=== PATIENT | female | born 1990 | race Hispanic/Latino ===

== ENCOUNTER → 2023-12-23 11:35 | Outpatient (REF) | payer OTHER, SELFPAY ==
[2023-12-23 12:29] LABS: % Basophils 0.5 % (0-2); % Eosinophils 0.6 % (0-6); % Immature Granulocytes 0.4 % (0-0.5); % Lymphocytes 31.7 % (20.5-51.1); % Monocytes 5.6 % (1.7-9.3); % Neutrophils 61.2 % (42.2-75.2); Absolute Eosinophils 0.1 10^3/uL (0-0.7); Absolute Lymphocytes 2.5 10^3/uL (1.2-3.4); Absolute Monocytes 0.4 10^3/uL (0.1-0.6); Absolute Neutrophils 4.8 10^3/uL (1.4-6.5); Hematocrit 41.8 % (37.0-47.0); Hemoglobin 14.6 g/dL (12.0-16.0); Mean Corp Hgb Conc. 34.9 g/dL (33.0-37.0); Mean Corpuscular Hgb 33.5 pg (27.0-31.0); Mean Corpuscular Volume 95.9 fL (81.0-99.0); Mean Platelet Volume 11.7 fL (7.4-10.4); Nucleated Red Blood Cells % 0 %; Platelet Count 173 10^3/uL (130-400); Red Blood Cell Count 4.36 10^6/uL (4.20-5.40); Red Cell Dist. Width 11.9 % (11.5-14.5); White Blood Cell Count 7.8 10^3/uL (4.8-10.8)
[2023-12-23 13:02] LABS: ALT (SGPT) 31 U/L (0-35); AST (SGOT) 29 U/L (14-36); Albumin 4.3 g/dl (3.5-5.0); Alkaline Phosphatase 81 U/L (38-126); Blood Urea Nitrogen 11 mg/dl (7-17); Calcium 9.7 mg/dl (8.4-10.2); Carbon Dioxide 23 mmol/L (22-30); Chloride 107 mmol/L (98-107); Glucose 97 mg/dl (70-99); HDL Cholesterol 56 mg/dl; LDL Cholesterol, Calculated 61 mg/dl; Potassium 4.3 mmol/L (3.5-5.1); Sodium 139 mmol/L (135-145); Total Bilirubin 0.5 mg/dl (0.2-1.3); Total Cholesterol 143 mg/dl (50-199); Total Protein 7.1 g/dl (6.3-8.2); Triglyceride 130 mg/dl (10-149); Very Low Density Lipoprotein 26 mg/dl (0-30); eGFR > 60.00
[2023-12-23 13:32] LABS: TSH Reflex To Free T4 0.79 uIU/ml (0.47-4.68)
[2023-12-23 13:35] LABS: Ferritin 45.9 ng/ml (6.24-137)
[2023-12-23 13:37] LABS: Urine Albumin Negative (Neg - Trace); Urine Bilirubin Negative (Negative); Urine Character Clear (Clear); Urine Color Yellow; Urine Glucose Negative (Negative); Urine Ketone Trace (Negative); Urine Leukocyte 2+ (Negative); Urine Nitrite Positive (Negative); Urine Occult Blood Negative (Negative); Urine Specific Gravity 1.015 (<1.030); Urine Urobilinogen Negative (Neg - 1+)
[2023-12-23 13:53] LABS: Urine Squamous Cell >30 /LPF (Few)
[2023-12-23 13:54] LABS: Urine Bacteria Many (Negative); Urine Red Blood Cell None Seen /HPF (0-2)
[2023-12-23 13:55] LABS: Urine White Cell 21-25 /HPF (0-5)
[2023-12-24 09:23] LABS: Glycohemoglobin (HgbA1c) 5.1 % (4.0-5.6)
== END ==
LOC: CLINIC 11:35
PROVIDERS: ATTENDING PHYSICIAN Student in an Organized Health Care Education/Training Program
DX: Z00.00 Encounter for general adult medical examination without abnormal findings (principal)
CPT/HCPCS: 36415; 80053; 80061; 81003; 81015; 82728; 83036; 84443; 85025; 87077; 87086; 87186

== ENCOUNTER → 2024-02-10 11:46 | Outpatient (REF) | payer OTHER, SELFPAY ==
[2024-02-19 21:24] LABS: HPV, High Risk Not Detected; HPV, High Risk Source Cervical
== END ==
LOC: CLINIC 11:46
PROVIDERS: ATTENDING PHYSICIAN Nurse Practitioner Adult Health
DX: Z12.4 Encounter for screening for malignant neoplasm of cervix (principal)
CPT/HCPCS: 87624; G0123

== ENCOUNTER 2024-04-03 20:37 | Emergency (ER) | payer OTHER, SELFPAY ==
[2024-04-03 20:47] VITALS: BP 138/88
[2024-04-03 22:00] VITALS: BP 129/81
--- NOTE | 2024-04-03 22:15 | ED.GENMED ---
History of Present Illness
<DOMO French - Last Filed: 04/04/24 02:42>
General
Chief Complaint: Problems
Time Seen by Provider: 04/03/24 21:55
History of Present Illness
History of Present Illness:
Pt is a 33 y/o female presenting after two positive at home tests. She states her last menstrual period was on March 01 and her current period is 3 days late. She states she took an at home test last night and today and
they were both positive. She states she is having LLQ abdominal pain that started yesterday. She states the pain started at noon yesterday and was intermittent and crampy until the evening when it resolved. She states currently she only has the pain
with palpation of the LLQ. Pt states she has a history of a tubal ligation and is worried she will not be able to carry the . She denies any headaches, fevers, chest pain, nausea, vomiting, hange in bowel habits, or urinary symptoms.
Past History
<Rita Ocampo DO - Last Filed: 04/04/24 06:44>
Past History
ED Past Medical History: Other (Ectopic )
ED Past Surgical History: Appendectomy (2020), (2008) and Gynecological (Right oophorectomy, ectopic removal 2020)
Social History
Tobacco: Non-smoker
Alcohol: None
Personal:
Living: with family
Employment: Not employed
Family History
Family History: Other (Noncontributory)
Phy Exam
<DOMO French - Last Filed: 04/04/24 02:42>
Physical Exam
Physical Exam:
GENERAL: Alert , in no apparent distress
EYE: pupils equal and reactive
Throat: Airway intact, no exudates
NECK: Supple, no significant adenopathy.
CARDIAC: Regular rate and rhythm .
LUNGS: Clear breath sounds bilaterally, no acute respiratory distress, no wheezes/rales/rhonchi
ABDOMEN: Tender to palpation in the LLQ. Soft, nondistended, no cvat
NEUROLOGICAL: Alert and oriented, no focal neuro deficits
MUSCULOSKELETAL: No edema, well perfused.
PSYCH: Normal and appropriate interaction.
Course
<DOMO French - Last Filed: 04/04/24 02:42>
Orders/Labs/Results
Orders:
Orders
04/03/24 22:00
Test Result ONCE
04/03/24 22:21
Add On- LAB Urgent
Tests Added?: quant HCG if qual HCG(+)
04/03/24 22:32
US W Transvaginal Urgent
Reason For Exam: LLQ pain, spotting, early preg LMP 03/01/24
04/03/24 22:52
Blood Group&Type Urgent
Beta HCG Quantitative Urgent
Comment: PROB
Vital Signs
Initial and Last Documented VS:
Initial Vital Signs
Temp Pulse Resp BP Pulse Ox
99.2 F 100 24 138/88 98
04/03/24 20:47 04/03/24 20:47 04/03/24 20:47 04/03/24 20:47 04/03/24 20:47
Last Documented Vital Signs
Temp Pulse Resp BP Pulse Ox
97.6 F 67 16 120/71 100
04/04/24 02:33 04/04/24 02:33 04/04/24 02:33 04/04/24 02:33 04/04/24 02:33
Information
Weeks gestation: Weeks: (4)
Location: Location: (Unable to determine)
<Rita Ocampo DO - Last Filed: 04/04/24 06:44>
Orders/Labs/Results
Orders:
Orders
04/03/24 22:00
Test Result ONCE
04/03/24 22:21
Add On- LAB Urgent
Tests Added?: quant HCG if qual HCG(+)
04/03/24 22:32
US W Transvaginal Urgent
Reason For Exam: LLQ pain, spotting, early preg LMP 03/01/24
04/03/24 22:52
Blood Group&Type Urgent
Beta HCG Quantitative Urgent
Comment: PROB
Vital Signs
Initial and Last Documented VS:
Initial Vital Signs
Temp Pulse Resp BP Pulse Ox
99.2 F 100 24 138/88 98
04/03/24 20:47 04/03/24 20:47 04/03/24 20:47 04/03/24 20:47 04/03/24 20:47
Last Documented Vital Signs
Temp Pulse Resp BP Pulse Ox
97.6 F 67 16 120/71 100
04/04/24 02:33 04/04/24 02:33 04/04/24 02:33 04/04/24 02:33 04/04/24 02:33
Information
Weeks gestation: Weeks: (4)
Location: Location: (unable to determine. HCG only 153. No IUP nor adenexal mass found on US)
<DOMO French - Last Filed: 04/04/24 02:42>
*Radiology
Radiology exam reviewed: radiology read reviewed
*Pulse Oximetry
Patient hypoxic: no
*EKG
Interpreted by ED Provider?: NA
*Clinical Team Lead Interpretation
Rate: Clinical Team Lead- N/A
*Critical Care Note
Total Time (30-74mins, 75-104mins- exclusive of procedures): Not Applicable
ED Attending Note
<DOMO French - Last Filed: 04/04/24 02:42>
-
Portions of this chart may have been created with voice recognition software.� Occasional wrong word or��sound alike� substitutions may have occurred due to the inherent limitations of voice recognition software.
<Rita Ocampo, DO - Last Filed: 04/04/24 06:44>
ED Attending Note
Patient seen and examined by attending physician: Yes
I performed the substantive portion of visit, reviewed & personally made and approve the management plan that is documented in note by myself or LACIE.: Yes
ED Attending Note:
This is a 33-year-old, Ukrainian-speaking woman who presents with 2 to 3-day history of vaginal spotting with history of 2 positive home tests performed today as well as yesterday.
Last normal menstrual period March 01, 2024. She is currently 3 days late for her menses. Menstrual periods are generally very regular, monthly.
She complains of mild left lower quadrant discomfort that began yesterday, intermittent and mild throughout the day today. No dysuria and urgency and or hematuria, no back pain or flank pain.
She is 4 Para 2-0-1-2. She has 2 children at home, 1 born via 2008, prior to that a vaginal delivery.
2-1/2 years ago she suffered a right ectopic complicated by right ovary hemorrhagic cyst and underwent surgical removal of right ectopic as well as right ovary and appendectomy.
At the time of that surgery she was told that going forward she may have difficulty/complications if she were to become again.
She does admit that this is a surprise, she and her have not been using control for several years.
She takes no medicines on a daily basis.
No significant past medical history.
Records reviewed. Patient follows with [facility].
Unremarkable routine screening laboratory studies November of this year.
Normal Pap smear January of this year. Negative for HPV.
GENERAL: 33-year-old woman appears her stated age, awake and alert, pleasant, appears in no acute distress. Her is accompanying. Language line convertible sofa bedspring tester utilized.
EYE: anicteric
NECK: Supple, nontender, no meningismus, no significant adenopathy.
ENT: oral mucosa is moist. No rhinorrhea.
CARDIAC: Regular rate and rhythm. no murmur.
LUNGS: Clear breath sounds bilaterally, no acute respiratory distress, no wheezes/rales/rhonchi
ABDOMEN: Soft, nondistended, minimal tenderness with deep palpation only left lower quadrant as well as minimal tenderness with deep palpation only suprapubic region, no r/g, no cvat. normoactive BS.
NEUROLOGICAL: Alert and oriented x3, no focal neuro deficits. Gait is chambers and steady.
SKIN: Warm and dry, normal color, skin intact. No rash.
MUSCULOSKELETAL: No C/C/E. peripheral pulses are full and equal b/l. No palpable tenderness.
PSYCH: Normal and appropriate interaction.
Concern for ectopic , early/incomplete miscarriage.
Hemodynamically stable and overall appears comfortable.
Will verify with serum hCG�quantitative hCG.
Will check type and Rh.
Will plan for ultrasound.
04/04/2024 0244 AM
Quantitative hCG is quite low at 153. Type and Rh O+.
Patient remains comfortable. Denies pain.
Ultrasound shows no IUP, no adnexal masses. No pelvic free fluid.
Discussed with patient that significantly low hCG could just be very very early versus loss. It also does not rule out ectopic however no evidence of ectopic currently on ultrasound.
She and her were not planning on becoming and she is contemplating termination if is deemed viable.
She follows with our [facility] and recommend she call the clinic today for follow-up appointment tomorrow, April 05 for repeat hCG. If hCG is trending down, this signifies loss of .
If hCG is trending up she will require further serial hCGs and serial ultrasounds.
Return precautions discussed including severe pain, severe bleeding.
Discharge Plan
Departure
Patient Disposition: Home (Routine Discharge)
Date of Disposition: 04/04/24
Time of Disposition: 02:40
Patient with high blood pressure during this ER visit?: No
Discharge Problem:
Threatened in early
Referrals:
[facility] - Tomorrow
UNKNOWN - PT DOES,NOT KNOW [Family Provider] -
Activity Restrictions/Additional Instructions:
You will need repeat Quantitative HCG on 04/05/24.
Interventions
Interventions:
*Risk Screen - Suicide Last Done: 04/03/24 20:47
*General Assessment Last Done: 04/03/24 22:45
*Neglect/Abuse Screening Last Done: 04/03/24 20:47
ED- Fall Risk Assessment Last Done: 04/03/24 22:55
*ED COVID-19 Vaccine History Last Done: 04/03/24 22:45
*Nursing Disposition Last Done: 04/04/24 02:46
ED-Female Genitourinary Assessment Last Done: 04/03/24 22:55
Discharge Date and Time
Discharge Date/Time: 04/04/24 02:46
Print Language: ZIMBABWEAN
[2024-04-03 22:43] VITALS: BMI 23.6
[2024-04-03 23:49] LABS: Beta HCG Quantitative 153.29 mIU/ml
[2024-04-04 01:00] VITALS: BP 122/62
[2024-04-04 02:33] VITALS: BP 120/71
== END 2024-04-04 02:46 | disposition home or self-care (01) ==
LOC: EMR 20:37
PROVIDERS: EMERGENCY PHYSICIAN Emergency Medicine
DX: O20.0 Threatened abortion (principal); Z3A.01 Less than 8 weeks gestation of pregnancy
CPT/HCPCS: 99284; 76801; 76817; 84702; 86900; 86901

== ENCOUNTER 2024-04-18 18:10 | Emergency (ER) | payer OTHER, SELFPAY ==
[2024-04-18 18:55] VITALS: BP 130/74
[2024-04-18 19:14] LABS: % Basophils 0.5 % (0-2); % Eosinophils 1.4 % (0-6); % Immature Granulocytes 0.3 % (0-0.5); % Lymphocytes 32.5 % (20.5-51.1); % Monocytes 6.2 % (1.7-9.3); % Neutrophils 59.1 % (42.2-75.2); Absolute Eosinophils 0.1 10^3/uL (0-0.7); Absolute Lymphocytes 2.6 10^3/uL (1.2-3.4); Absolute Monocytes 0.5 10^3/uL (0.1-0.6); Absolute Neutrophils 4.7 10^3/uL (1.4-6.5); Hematocrit 38.5 % (37.0-47.0); Hemoglobin 13.8 g/dL (12.0-16.0); Mean Corp Hgb Conc. 35.8 g/dL (33.0-37.0); Mean Corpuscular Hgb 33.9 pg (27.0-31.0); Mean Corpuscular Volume 94.6 fL (81.0-99.0); Mean Platelet Volume 11.7 fL (7.4-10.4); Nucleated Red Blood Cells % 0 %; Platelet Count 182 10^3/uL (130-400); Red Blood Cell Count 4.07 10^6/uL (4.20-5.40); Red Cell Dist. Width 12.2 % (11.5-14.5); White Blood Cell Count 7.9 10^3/uL (4.8-10.8)
[2024-04-18 19:36] LABS: ALT (SGPT) 24 U/L (0-35); AST (SGOT) 24 U/L (14-36); Albumin 4.4 g/dl (3.5-5.0); Alkaline Phosphatase 78 U/L (38-126); Blood Urea Nitrogen 11 mg/dl (7-17); Calcium 9.7 mg/dl (8.4-10.2); Carbon Dioxide 22 mmol/L (22-30); Chloride 108 mmol/L (98-107); Glucose 99 mg/dl (70-99); Potassium 4.5 mmol/L (3.5-5.1); Sodium 138 mmol/L (135-145); Total Bilirubin 0.4 mg/dl (0.2-1.3); eGFR > 60.00
[2024-04-18 20:04] LABS: Beta HCG Quantitative 362.29 mIU/ml
--- NOTE | 2024-04-18 21:03 | ED.GENMED ---
History of Present Illness
General
Chief Complaint: Problems
Time Seen by Provider: 04/18/24 20:27
History of Present Illness
History of Present Illness:
34-year-old female, G4, P2, presents to the emergency department for evaluation of increased abdominal pain and vaginal bleeding. She presented to this emergency department just over 2 weeks ago with a similar complaint at which time ultrasound was
not feeling and hCG levels were low at approximately 150. She did not follow-up with [facility] in the interim. Symptoms worsen time bleeding increased today. Denies any fevers or chills. Prior abdominal surgery includes right oophorectomy, tubal
ligation, x 1, and appendectomy.
Past History
Past History
ED Past Medical History: Other (Ectopic )
ED Past Surgical History: Appendectomy (2020), (2008) and Gynecological (Right oophorectomy, ectopic removal 2020)
Social History
Tobacco: Non-smoker
Alcohol: None
Personal:
Living: with family
Employment: Not employed
Family History
Family History: Other (Noncontributory)
Review of Systems
Review of Systems
Allergies reviewed?: Yes
All Other Systems: ROS reviewed and negative except as documented in HPI and ROS
Phy Exam
Physical Exam
Physical Exam:
GEN: Well appearing, NAD, WDWN
HEENT: Oral mucosa moist, no scleral icterus
Cardiac: Regular rate
Lung: No respiratory distress, no tachypnea
Abdomen: Soft, mild central lower abdominal tenderness
MSK: No gross deformity or injuries
Skin: Good color, no pallor or jaundice, no rashes
Neuro: AO x3, moves all extremities freely
Psych: Calm, cooperative
Course
Orders/Labs/Results
Orders:
Orders
04/18/24 19:07
Blood Group&Type Urgent
Beta HCG Quantitative Urgent
Is this a screen?: No
CMP [Comprehensive Metabolic Panel] Urgent
Complete Blood Count/With Diff Urgent
04/18/24 19:11
US W Transvaginal Urgent
Reason For Exam: bleeding
04/18/24 22:00
Methotrexate Sodium/Pf [Methotrexate] 38.5 mg Syringe [Syringe Non-Pump] 0 ml IM ONCE
Methotrexate Sodium/Pf [Methotrexate] 38.5 mg Syringe [Syringe Non-Pump] 0 ml IM ONCE
Abnormal Lab Results
04/18/24
19:07
RBC 4.07 L 10^6/uL
(4.20-5.40)
MCH 33.9 H pg
(27.0-31.0)
MPV 11.7 H fL
(7.4-10.4)
Chloride 108 H mmol/L
(98-107)
04/18/24 19:07
04/18/24 19:07
Vital Signs
Initial and Last Documented VS:
Initial Vital Signs
Temp Pulse Resp BP Pulse Ox
98.6 F 82 22 130/74 100
04/18/24 18:55 04/18/24 18:55 04/18/24 18:55 04/18/24 18:55 04/18/24 18:55
Last Documented Vital Signs
Temp Pulse Resp BP Pulse Ox
98.6 F 82 22 130/74 100
04/18/24 18:55 04/18/24 18:55 04/18/24 18:55 04/18/24 18:55 04/18/24 18:55
Information
Weeks gestation: N/A
Location: Location: (Ectopic)
MDM/Problems Addressed
MDM/Problems Addressed:
Ultrasound reveals a suspected ectopic with a new mass at the right adnexa. Patient's hCG did climb given lack of any other findings to suggest an intrauterine I suspect this is truly an ectopic, particularly given high risk
situation with her prior tubal ligation. Case was discussed with [facility] who agree with proceeding with methotrexate. Initial IM dose given in the emergency department, patient instructed thoroughly regarding avoidance of NSAIDs and sun exposure,
alcohol intake, and need for hCG repeat in 4 days. Outpatient orders are written and she is advised to call [facility] for follow-up
*Critical Care Note
Total Time (30-74mins, 75-104mins- exclusive of procedures): Not Applicable
ED Attending Note
-
Portions of this chart may have been created with voice recognition software.� Occasional wrong word or��sound alike� substitutions may have occurred due to the inherent limitations of voice recognition software.
Discharge Plan
Departure
Patient Disposition: Home (Routine Discharge)
Date of Disposition: 04/18/24
Time of Disposition: 21:45
Patient with high blood pressure during this ER visit?: No
Discharge Problem:
Ectopic
Instructions: Methotrexate, Ectopic - Discharge instructions
Prescriptions:
No Action
No Current Medications
0
Referrals:
UNKNOWN - PT DOES,NOT KNOW [Family Provider] -
Patito Guallpa MD [Active] - Call in 1-3 days for appt
Activity Restrictions/Additional Instructions:
You will need your HCG hormone levels redrawn on Thursday. Based on this result, you may need to come back for a repeat injection
Call the OBGYN office tomorrow morning for follow up appointment
Necesitar� volver a calcular mando niveles de la hormona HCG el viernes. Seg�n beverly resultado, es posible que deba regresar para repetir la inyecci�n. Llame a la oficina de OBGYN ma�avery por la ma�avery para vadim aura de seguimiento.
Interventions
Interventions:
*Risk Screen - Suicide Last Done: 04/18/24 18:55
*General Assessment Last Done: 04/18/24 20:59
*Neglect/Abuse Screening Last Done: 04/18/24 18:55
ED-Female Genitourinary Assessment Last Done: 04/18/24 21:02
Discharge Date and Time
Print Language: ROMANIAN
[2024-04-18 21:30] VITALS: BMI 28.4
[2024-04-18] MEDS: METHOTREXATE 1.54 MG IM (22:43)
[2024-04-18 22:54] VITALS: BP 119/78
== END 2024-04-18 22:54 | disposition home or self-care (01) ==
LOC: EMR 18:10
PROVIDERS: Student in an Organized Health Care Education/Training Program; EMERGENCY PHYSICIAN Emergency Medicine
DX: O00.90 Unspecified ectopic pregnancy without intrauterine pregnancy (principal); Z3A.00 Weeks of gestation of pregnancy not specified; Z90.49 Acquired absence of other specified parts of digestive tract; Z90.721 Acquired absence of ovaries, unilateral
CPT/HCPCS: 99284; 96372; 76801; 76817; 80053; 84702; 85025; 86900; 86901; J9260

== ENCOUNTER → 2024-04-22 08:54 | Outpatient (REF) | payer OTHER, SELFPAY ==
[2024-04-22 11:11] LABS: Beta HCG Quantitative 87.68 mIU/ml
== END ==
LOC: REG 08:54
PROVIDERS: ATTENDING PHYSICIAN Emergency Medicine; FAMILY PHYSICIAN Nurse Practitioner Adult Health
DX: O00.90 Unspecified ectopic pregnancy without intrauterine pregnancy (principal)
CPT/HCPCS: 36415; 84702

== ENCOUNTER → 2024-04-27 07:13 | Outpatient (REF) | payer OTHER, SELFPAY ==
[2024-04-27 08:24] LABS: % Basophils 0.5 % (0-2); % Eosinophils 1.2 % (0-6); % Immature Granulocytes 0.5 % (0-0.5); % Lymphocytes 39.6 % (20.5-51.1); % Neutrophils 52.2 % (42.2-75.2); Absolute Eosinophils 0.1 10^3/uL (0-0.7); Absolute Lymphocytes 2.6 10^3/uL (1.2-3.4); Absolute Monocytes 0.4 10^3/uL (0.1-0.6); Absolute Neutrophils 3.4 10^3/uL (1.4-6.5); Hematocrit 39.9 % (37.0-47.0); Hemoglobin 14.2 g/dL (12.0-16.0); Mean Corp Hgb Conc. 35.6 g/dL (33.0-37.0); Mean Corpuscular Hgb 33.9 pg (27.0-31.0); Mean Corpuscular Volume 95.2 fL (81.0-99.0); Mean Platelet Volume 11.3 fL (7.4-10.4); Nucleated Red Blood Cells % 0 %; Platelet Count 199 10^3/uL (130-400); Red Blood Cell Count 4.19 10^6/uL (4.20-5.40); Red Cell Dist. Width 12.6 % (11.5-14.5); White Blood Cell Count 6.5 10^3/uL (4.8-10.8)
[2024-04-27 08:39] LABS: Urine Albumin Negative (Neg - Trace); Urine Bilirubin Negative (Negative); Urine Character Clear (Clear); Urine Color Yellow; Urine Glucose Negative (Negative); Urine Ketone Negative (Negative); Urine Leukocyte Trace (Negative); Urine Nitrite Negative (Negative); Urine Occult Blood Negative (Negative); Urine Specific Gravity 1.025 (<1.030); Urine Urobilinogen Negative (Neg - 1+)
[2024-04-27 08:42] LABS: ALT (SGPT) 29 U/L (0-35); AST (SGOT) 27 U/L (14-36); Albumin 4.4 g/dl (3.5-5.0); Alkaline Phosphatase 82 U/L (38-126); Blood Urea Nitrogen 13 mg/dl (7-17); Calcium 9.3 mg/dl (8.4-10.2); Carbon Dioxide 25 mmol/L (22-30); Chloride 107 mmol/L (98-107); Glucose 100 mg/dl (70-99); HDL Cholesterol 54 mg/dl; LDL Cholesterol, Calculated 97 mg/dl; Potassium 4.2 mmol/L (3.5-5.1); Sodium 143 mmol/L (135-145); Total Bilirubin 0.6 mg/dl (0.2-1.3); Total Cholesterol 173 mg/dl (50-199); Triglyceride 111 mg/dl (10-149); Very Low Density Lipoprotein 22 mg/dl (0-30); eGFR > 60.00
[2024-04-27 08:46] LABS: Urine Bacteria Few (Negative); Urine Squamous Cell >30 /LPF (Few); Urine White Cell 0-2 /HPF (0-5)
[2024-04-27 08:47] LABS: Urine Red Blood Cell 0-2 /HPF (0-2)
[2024-04-27 11:35] LABS: TSH Reflex To Free T4 2.57 uIU/ml (0.47-4.68)
[2024-04-27 11:39] LABS: Ferritin 43.9 ng/ml (6.24-137)
[2024-04-27 18:59] LABS: Beta HCG Quantitative 24.82 mIU/ml
== END ==
LOC: REG 07:13
PROVIDERS: ATTENDING PHYSICIAN Student in an Organized Health Care Education/Training Program
DX: Z00.00 Encounter for general adult medical examination without abnormal findings (principal); R30.0 Dysuria
CPT/HCPCS: 36415; 80053; 80061; 81003; 81015; 82728; 83036; 84443; 84702; 85025

== ENCOUNTER → 2024-05-05 07:41 | Outpatient (REF) | payer OTHER, SELFPAY ==
[2024-05-05 08:45] LABS: Beta HCG Quantitative 3.58 mIU/ml
== END ==
LOC: REG 07:41
PROVIDERS: ATTENDING PHYSICIAN Obstetrics & Gynecology
DX: O00.90 Unspecified ectopic pregnancy without intrauterine pregnancy (principal)
CPT/HCPCS: 36415; 84702

== ENCOUNTER → 2024-05-11 08:29 | Outpatient (REF) | payer OTHER, SELFPAY ==
[2024-05-11 10:39] LABS: Beta HCG Quantitative < 2.39 mIU/ml
== END ==
LOC: CLINIC 08:29
PROVIDERS: ATTENDING PHYSICIAN Obstetrics & Gynecology
DX: O00.80 Other ectopic pregnancy without intrauterine pregnancy (principal)
CPT/HCPCS: 36415; 84702

== ENCOUNTER → 2024-11-16 10:02 | Outpatient (REF) | payer OTHER, SELFPAY | LOC: CLINIC 10:02 | PROVIDERS: ATTENDING PHYSICIAN Nurse Practitioner Adult Health | DX: N76.0 Acute vaginitis (principal) | CPT/HCPCS: 87070; 87491; 87591 ==